=== PATIENT | female | born 1940 | race African-American/Black ===

== ENCOUNTER 2017-04-30 10:59 | Emergency (ER) | payer OTHER, MEDICAID ==
[~2017-04-30] VITALS: Ht 154.9 cm; Wt 75.0 kg
[~2017-04-30 10:59] MED LIST: ASPI-1158 PO; ATOR10TA69 PO; BRIM5DRO OP; DICL50TA9 PO; FLUT16SP15 NS; FURO20TA4 PO; GABA-529 PO; HYDR-2510 PO; LATA2.5D2 EACHEYE; LISI10TA5 PO; METO-396 PO; OMEP20CA10 PO; POTA10CA42 PO; SERT50TA12 PO
[2017-04-30 12:05] LABS: HEMATOCRIT. 37.1 % (36.0-48.0); HEMOGLOBIN. 12.2 g/dL (12.0-16.0); MEAN CORPUSCULAR HEMOGLOBIN 31.8 pg (28.0-32.0); MEAN CORPUSCULAR VOLUME 96.5 fL (81.0-99.0); MEAN PLATELET VOLUME 9.7 fl (7.4-10.4); PLATELET 275 x1000/uL (130-400); RED BLOOD CELL COUNT 3.84 mill/uL (4.2-5.4); RED CELL DISTRIBUTION WIDTH 13.9 % (11.6-14.6)
[2017-04-30 12:12] LABS: PROTHROMBIN TIME 10.8 sec (9.4-11.6)
[2017-04-30 12:24] LABS: CARBON DIOXIDE 31 mEq/L (21-32); CHLORIDE 107 mEq/L (98-107); TROPONIN I < 0.02 ng/mL (0.00-0.04)
[2017-04-30 13:34] LABS: PLATELET ESTIMATE NORMAL
[2017-04-30 14:52] VITALS: BP 155/76
== END 2017-04-30 15:12 | disposition home or self-care (01) ==
LOC: ER 12:28
DX: J10.1 Influenza due to other identified influenza virus with other respiratory manifestations (principal); K21.9 Gastro-esophageal reflux disease without esophagitis; E78.00 Pure hypercholesterolemia, unspecified; I11.0 Hypertensive heart disease with heart failure; I50.9 Heart failure, unspecified; J45.909 Unspecified asthma, uncomplicated; F32.9 Major depressive disorder, single episode, unspecified; Z90.711 Acquired absence of uterus with remaining cervical stump; Z79.82 Long term (current) use of aspirin; Z88.6 Allergy status to analgesic agent; Z88.0 Allergy status to penicillin
CPT/HCPCS: 36415; 71045; 80053; 83880; 84484; 85025; 85610; 87804; 93005; 99285

== ENCOUNTER 2017-09-12 12:30 | Emergency (ER) | payer OTHER, MEDICAID ==
[~2017-09-12] VITALS: Ht 175.3 cm; Wt 78.0 kg
[2017-09-12 13:03] LABS: BASOPHILS % 1.3 % (0.0-2.0); EOSINOPHILS % 0.4 % (0.0-5.0); HEMATOCRIT. 34.2 % (36.0-48.0); HEMOGLOBIN. 11.4 g/dL (12.0-16.0); MEAN CORPUSCULAR HEMOGLOBIN 31.3 pg (28.0-32.0); MEAN CORPUSCULAR VOLUME 94.2 fL (81.0-99.0); MEAN PLATELET VOLUME 9.6 fl (7.4-10.4); MONOCYTES % 7.1 % (2.0-8.0); NEUTROPHILS % 64.2 % (40.0-76.0); PLATELET 269 x1000/uL (130-400); RED BLOOD CELL COUNT 3.63 mill/uL (4.2-5.4); RED CELL DISTRIBUTION WIDTH 12.9 % (11.6-14.6)
[2017-09-12 13:09] LABS: CHLORIDE 101 mEq/L (98-107)
[2017-09-12 13:15] LABS: PARTIAL THROMBOPLASTIN TIME 28.7 sec (23.4-31.0); PROTHROMBIN TIME 10.7 sec (9.4-11.6)
[2017-09-12 13:33] VITALS: BP 153/95
[2017-09-12] MEDS ORDERED: POTASSIUM CHLORIDE 20MEQ TABLET SR PO ONE (14:45)
[2017-09-12 14:50] LABS: CLARITY URINE CLEAR (CLEAR); COLOR URINE YELLOW (YELLOW); KETONES URINE NEGATIVE (NEGATIVE); LEUKOCYTE ESTERASE URINE 2+ (NEGATIVE); NITRITE URINE NEGATIVE (NEGATIVE); OCCULT BLOOD URINE NEGATIVE (NEGATIVE); PROTEIN URINE NEGATIVE (NEGATIVE); SPECIFIC GRAVITY URINE 1.006 (1.005-1.030); UROBILINOGEN URINE 0.2 E.U./dL (0.2-1.0)
[2017-09-12] MEDS ORDERED: NITROFURANTOIN 100MG M/M CAPSULE PO ONE (15:15)
[2017-09-12] MEDS ORDERED: PHENAZOPYRIDINE HCL 200MG TABLET PO ONE (15:15)
== END 2017-09-12 16:40 | disposition home or self-care (01) ==
LOC: ER 16:10 → CANBEDREQ 17:07
DX: N39.0 Urinary tract infection, site not specified (principal); I50.9 Heart failure, unspecified; I11.0 Hypertensive heart disease with heart failure; E87.6 Hypokalemia; J45.909 Unspecified asthma, uncomplicated; E78.00 Pure hypercholesterolemia, unspecified; Z88.6 Allergy status to analgesic agent; Z88.0 Allergy status to penicillin; Z79.82 Long term (current) use of aspirin; Z90.711 Acquired absence of uterus with remaining cervical stump; Z98.890 Other specified postprocedural states
CPT/HCPCS: 36415; 71045; 80053; 81003; 83605; 83690; 83880; 84443; 85025; 85610; 85730; 87040; 87077; 87086; 87186; 93005; 96374; 99285